=== PATIENT | male | born 1955 | race Caucasian/White ===

== ENCOUNTER 2016-03-26 16:31 | Inpatient (IN) | payer OTHER ==
--- NOTE | 2016-03-26 17:30 | Diag Imaging Result Document ---
PROCEDURE NAME: CHEST-2 VIEWS - 03/26/2016 TWO VIEWS OF THE CHEST: FINDINGS: There are surgical clips in the left upper lobe. There is flattening of the diaphragms. There are old rib fractures bilaterally. There are no previous studies. IMPRESSION: COPD. Old rib fractures.
--- NOTE | 2016-03-26 17:50 | PROVIDER DOCUMENTATION ---
HPI-General Adult - General Source: patient - History of Present Illness -Gen Adult Nature of Presenting Problems: patient is a 60 yo M that presents with right rib pain after having a coughing episode 24 hours ago. reports patient had a fever 2 days ago as well and started on Levaquin. He has Alpha 1 and is o2 dependent with needing lung and liver transplant. Location of Pain/Injury: reports: chest (right rib) Pain Radiation: reports: no radiation Quality of Pain: reports: dull Severity: reports: moderate Onset/Duration: reports: abrupt, 24 hours ago Timing: reports: still present, constant Context/Activities at Onset: reports: other (coughing) Modifying Factors: worse with: coughing Associated Symptoms: reports: chest pain, fever/chills, shortness of breath, pain with inspiration Similar Symptoms Previously?: No Recently seen or treated by another doctor?: Yes <Shukri Dewitt - Last Filed: 03/26/16 18:04> - General Source: patient (Patient is a 60 year old white male with history of severe liver and lung disease who has been awaiting liver and lung transplant who presents with reported fever, right sided rib pain,and rapid heart rate for past ) <Tripp Angeles - Last Filed: 03/26/16 19:01> <Juan Jose Bull - Last Filed: 03/26/16 21:55> - General Chief Complaint: Rib Pain Stated Complaint: RIB PAIN/COUGH Time Seen by Provider: 03/26/16 16:53 Allergies/Adverse Reactions: Patient Allergies Allergy/AdvReac Type Severity Reaction Status Date / Time nalbuphine HCl * Allergy Intermediate ANAPHYLAXIS Verified 03/14/14 23:26 [From Felipe] Home Medications: Albuterol Sulfate [Ventolin Hfa] 2 puff IH Q4-6H PRN PRN 03/14/14 Albuterol [Albuterol Neb] 2.5 mg INH BID PRN 03/14/14 Alendronate [Fosamax] 70 mg PO Q7D 03/14/14 Pxwcu-2-Wfuuvrlhld Inhibitor [Prolastin C] 1,000 mg IV DIRECTED 03/14/14 Alprazolam [Xanax] 0.5 mg PO DAILY 03/14/14 Budesonide [Pulmicort] 0.25 mg INH RTBID 03/14/14 Formoterol Fumarate [Foradil] 1 puff INH RTBID 03/14/14 Guaifenesin E.r. [Mucinex] 600 mg PO BID 03/14/14 Milk Thistle 1,000 mg PO DAILY 03/14/14 Oxycodone I.r. [Oxy Ir] 10 mg PO Q8HR PRN 03/14/14 Phentermine HCl 37.5 mg PO QAM 03/14/14 Prednisone 10 mg PO DAILY 03/14/14 Tamsulosin [Flomax] 0.4 mg PO BID 03/14/14 Tiotropium [place] Inhaler [Spiriva] 1 puff INH RTDAILY 03/14/14 Triamcinolone Acetonide [Nasacort] 1 spray NS BID 03/14/14 Ursodiol 300 mg PO BID 03/14/14 Zolpidem Tartrate [Zolpidem Tartrate ER] 12.5 mg PO DAILY 03/14/14 Review of Systems - Adult - REVIEW OF SYSTEMS - ADULT Constitutional: reports: chills, fever Eyes: reports: no symptoms reported Ears, Nose, Mouth & Throat: denies: ear pain, sinus problem, throat pain Cardiovascular: denies: chest pain, palpitations, syncope Respiratory: reports: pleurisy, shortness of breath. denies: cough, wheezing Gastrointestinal: denies: abdominal pain, diarrhea, nausea, vomiting Genitourinary: reports: no symptoms reported Musculoskeletal: reports: no symptoms reported Integumentary: reports: no symptoms reported Neurological: reports: no symptoms reported Psychiatric: reports: no symptoms reported Endocrine: reports: no symptoms reported Hematologic/Lymphatic: reports: no symptoms reported Allergic/Immunologic: reports: no symptoms reported All Other Systems: Reviewed and Negative <Shukri Dewitt - Last Filed: 03/26/16 18:04> Past History - Adult - PAST MEDICAL HISTORY-ADULT Review of Records: reports: Old Records Reviewed, Nursing Assessment Review, Medications Reviewed Respiratory: reports: asthma, COPD, lung disease Gastrointestinal: reports: hepatitis (Alpha 1 antitrypsin deficiency) - PRIOR SURGERIES/PROCEDURES Surgical/Procedure History: reports: none - IMMUNIZATION STATUS Childhood Immunizations: See Nurse Assessment Flu Vaccine: See Nurse Assessment - FAMILY HISTORY Family History: reviewed, not pertinent - SOCIAL HISTORY Smoking: quit greater than 1 year, cigarettes Living Situation: family <Shukri Dewitt - Last Filed: 03/26/16 18:04> Physical Exam-General - PHYSICAL EXAM-ADULT Initial Vital Signs Reviewed: Yes - CONSTITUTIONAL General Appearance: alert, mild distress - EYES Eyes: PERRL/EOMI, pink conjunctivae - HEAD, EARS, NOSE, MOUTH & THROAT HENMT: normocephalic/atraumatic, moist mucous membranes, normal ENT inspection - NECK Neck: full range of motion, normal inspection - RESPIRATORY Respiratory: lungs clear, normal breath sounds, no respiratory distress, no accessory muscle use, pain on inspiration, other (rib pain to right side) - CARDIOVASCULAR Cardiovascular: no gallop, no murmur, tachycardia - GASTROINTESTINAL (ABDOMEN) Abdominal Exam: normal bowel sounds, non tender, soft - MUSCULOSKELETAL Extremity: normal range of motion, normal inspection, no pedal edema - SKIN Integumentary: normal color, warm/dry - NEUROLOGIC Neurologic: grossly normal, no motor/sensory deficits - PSYCHIATRIC Psych/Mental Status: normal mood/affect, normal thought content, normal thought process, oriented x 3 <Shukri Dewitt - Last Filed: 03/26/16 18:04> Progress - PLAN OF CARE/RESULTS Progress/Plan/Lab Results: plan of care-labs, xray, ct scan thorax - CHANGE OF SHIFT REPORT (ED Provider) Report Given and Care Transferred to:: Time of Transfer: 18:00 Items Pending: Labs, CT/MRI Results <Shukri Dewitt - Last Filed: 03/26/16 18:04> - PLAN OF CARE/RESULTS Progress/Plan/Lab Results: Laboratory Tests 03/26/16 03/26/16 03/26/16 18:00 18:00 18:00 WBC 11.28 H RBC 4.49 L Hgb 13.2 L Hct 40.1 L MCV 89.3 MCH 29.4 MCHC 32.9 L RDW Std Deviation 13.2 Plt Count 213 MPV 10.3 Immature Gran % (Auto) 1.0 H Neut % (Auto) 83.7 H Lymph % (Auto) 3.7 L Stanley % (Auto) 11.5 H Eos % (Auto) 0.0 Baso % (Auto) 0.1 Immature Gran # (Auto) 0.11 H Neut # 9.44 H Lymph # 0.42 L Stanley # 1.30 H Eos # 0.00 Baso # 0.01 Corrected WBC (Man) PT INR APTT (Factor Assay) D-Dimer Sodium 132 L Potassium 4.3 Chloride 90 L Carbon Dioxide 32 Anion Gap 11 BUN 29 H Creatinine 1.7 H Estimated GFR/1.73 m2 41 BUN/Creatinine Ratio 17 Glucose 165 H Calculated Osmolality 274 Calcium 9.3 Magnesium Total Bilirubin 0.50 AST 82 H ALT 68 H Alkaline Phosphatase 60 Creatine Kinase Creatine Kinase Index CK-MB (CK-2) Troponin T Zfr-U-Aasxhvozkuy Pept Total Protein 7.1 Albumin 4.0 Globulin 3.0 Albumin/Globulin Ratio 1.0 Plasma Lactate 2.8 H Urine Source Urine Color Urine Clarity Urine pH Ur Specific [place] Urine Protein Urine Ketones Urine Blood Urine Nitrite Urine Bilirubin Urine Urobilinogen Urine Microscopic RBC Urine WBC Urine Microscopic WBC Ur Epithelial Cells Urine Bacteria Urine Glucose Influenza A (Rapid) Influenza B (Rapid) 03/26/16 03/26/16 03/26/16 18:00 18:00 18:00 WBC RBC Hgb Hct MCV MCH MCHC RDW Std Deviation Plt Count MPV Immature Gran % (Auto) Neut % (Auto) Lymph % (Auto) Stanley % (Auto) Eos % (Auto) Baso % (Auto) Immature Gran # (Auto) Neut # Lymph # Stanley # Eos # Baso # Corrected WBC (Man) PT INR APTT (Factor Assay) D-Dimer Sodium Potassium Chloride Carbon Dioxide Anion Gap BUN Creatinine Estimated GFR/1.73 m2 BUN/Creatinine Ratio Glucose Calculated Osmolality Calcium Magnesium 1.6 Total Bilirubin AST ALT Alkaline Phosphatase Creatine Kinase 1362 H Creatine Kinase Index 0.7 CK-MB (CK-2) 8.92 H Troponin T < 0.010 Vey-M-Zdnqspsxuth Pept 78 Total Protein Albumin Globulin Albumin/Globulin Ratio Plasma Lactate Urine Source Urine Color Urine Clarity Urine pH Ur Specific [place] Urine Protein Urine Ketones Urine Blood Urine Nitrite Urine Bilirubin Urine Urobilinogen Urine Microscopic RBC Urine WBC Urine Microscopic WBC Ur Epithelial Cells Urine Bacteria Urine Glucose Influenza A (Rapid) Influenza B (Rapid) 03/26/16 03/26/16 03/26/16 18:00 18:00 19:35 WBC Cancelled RBC Cancelled Hgb Cancelled Hct Cancelled MCV Cancelled MCH Cancelled MCHC Cancelled RDW Std Deviation Cancelled Plt Count Cancelled MPV Cancelled Immature Gran % (Auto) Cancelled Neut % (Auto) Cancelled Lymph % (Auto) Cancelled Stanley % (Auto) Cancelled Eos % (Auto) Cancelled Baso % (Auto) Cancelled Immature Gran # (Auto) Cancelled Neut # Cancelled Lymph # Cancelled Stanley # Cancelled Eos # Cancelled Baso # Cancelled Corrected WBC (Man) Cancelled PT 13.8 INR 1.03 APTT (Factor Assay) 24.9 D-Dimer 0.55 H Sodium Potassium Chloride Carbon Dioxide Anion Gap BUN Creatinine Estimated GFR/1.73 m2 BUN/Creatinine Ratio Glucose Calculated Osmolality Calcium Magnesium Total Bilirubin AST ALT Alkaline Phosphatase Creatine Kinase Creatine Kinase Index CK-MB (CK-2) Troponin T < 0.010 Afn-C-Ibecotjmcus Pept Total Protein Albumin Globulin Albumin/Globulin Ratio Plasma Lactate Urine Source Urine Color Urine Clarity Urine pH Ur Specific [place] Urine Protein Urine Ketones Urine Blood Urine Nitrite Urine Bilirubin Urine Urobilinogen Urine Microscopic RBC Urine WBC Urine Microscopic WBC Ur Epithelial Cells Urine Bacteria Urine Glucose Influenza A (Rapid) Influenza B (Rapid) 03/26/16 03/26/16 19:45 20:15 WBC RBC Hgb Hct MCV MCH MCHC RDW Std Deviation Plt Count MPV Immature Gran % (Auto) Neut % (Auto) Lymph % (Auto) Stanley % (Auto) Eos % (Auto) Baso % (Auto) Immature Gran # (Auto) Neut # Lymph # Stanley # Eos # Baso # Corrected WBC (Man) PT INR APTT (Factor Assay) D-Dimer Sodium Potassium Chloride Carbon Dioxide Anion Gap BUN Creatinine Estimated GFR/1.73 m2 BUN/Creatinine Ratio Glucose Calculated Osmolality Calcium Magnesium Total Bilirubin AST ALT Alkaline Phosphatase Creatine Kinase Creatine Kinase Index CK-MB (CK-2) Troponin T Nri-T-Gvjkldsparq Pept Total Protein Albumin Globulin Albumin/Globulin Ratio Plasma Lactate Urine Source CLEAN CATCH Urine Color YELLOW Urine Clarity SL. CLOUDY A Urine pH 6.0 Ur Specific [place] 1.015 Urine Protein TRACE A Urine Ketones NEGATIVE Urine Blood 1+ A Urine Nitrite NEGATIVE Urine Bilirubin NEGATIVE Urine Urobilinogen NORMAL Urine Microscopic RBC <10 Urine WBC NEGATIVE Urine Microscopic WBC <10 Ur Epithelial Cells <10 Urine Bacteria 1+ Urine Glucose NEGATIVE Influenza A (Rapid) NEGATIVE Influenza B (Rapid) NEGATIVE Orders Category Date Time Status Cardiac Monitoring DIRECTED Care 03/26/16 18:14 Active IV Insertion ORDERED Care 03/26/16 19:00 Active Notify MD of + Sepsis Screen NOW Care 03/26/16 19:00 Active Oxygen Therapy- ED Nursing DIRECTED Care 03/26/16 18:14 Active Saline Loc NOW Care 03/26/16 17:51 Active ABDOMEN/PELVIS W/O CONTRAST [CT] Stat Exams 03/26/16 18:58 Taken CHEST-2 VIEWS [RAD] Stat Exams 03/26/16 16:[address] THORAX W/O CONTRAST [CT] Stat Exams 03/26/16 18:57 Taken BLOOD CULTURE [BLDCUL] Stat Lab 03/26/16 18:12 Ordered CBC WITH DIFF [HEME] Stat Lab 03/26/16 18:00 Completed CK PROFILE [SP CHEM] Stat Lab 03/26/16 18:00 Completed COMPREHENSIVE METABOLIC PANEL [CHEM] Stat Lab 03/26/16 18:00 Completed D-DIMER PL [COAG] Stat Lab 03/26/16 18:[address] Stat Lab 03/26/16 20:15 Completed LACTATE, PLASMA [CHEM] Stat Lab 03/26/16 18:00 Completed MAGNESIUM [CHEM] Stat Lab 03/26/16 18:00 Completed PRO B-NATRIURETIC PEPTIDE Stat Lab 03/26/16 18:[address]IME WITH INR [address] [COAG] Stat Lab 03/26/16 18:[address] [COAG] Stat Lab 03/26/16 18:00 Completed TROPONIN T Stat Lab 03/26/16 18:00 Completed TROPONIN T Stat Lab 03/26/16 19:[address] W/POSS RFLX CULT [URINALYSIS] Stat Lab 03/26/16 19:45 Completed 0.9% Sodium Chloride Inj [Ns] 1,000 ml Med 03/26/16 19:01 Discontinued .ROUTE As Directed 0.9% Sodium Chloride Inj [Ns] 3,540 ml Med 03/26/16 19:07 Active IV 999 mls/hr CefEPIME 2 GM/NS [Maxipime 2 gm/Ns] 100 ml Med 03/26/16 19:06 Discontinued IV NOW CefTRIAXONE 1 GM/NS [Rocephin 1 gm/Ns] 50 ml Med 03/26/16 18:59 Discontinued IV STAT Ibuprofen [Motrin Liquid] Med 03/26/16 19:08 Discontinued 600 mg .ROUTE .STK-MED ONE Ibuprofen [Motrin Liquid] Med 03/26/16 19:08 Discontinued 600 mg PO NOW ONE Morphine Med 03/26/16 18:28 Discontinued 4 mg IV NOW ONE Ondansetron [Zofran] Med 03/26/16 18:28 Discontinued 4 mg IV NOW ONE Oxygen Device Stat Oth 03/26/16 19:00 Active EKG [EKG] Stat Ther 03/26/16 18:14 Draft Vital Signs - 24 hr 03/26/16 03/26/16 16:41 19:00 Temperature 98 F 102.4 F H Pulse Rate 146 H 122 H Respiratory 20 22 Rate Blood Pressure 130/82 138/088 O2 Sat by Pulse 97 94 L Oximetry - XRAY 1 XRAY: Bilateral XRAY Study: Chest XRAY Interpretation: NEGATIVE - CT/MRI 1 CT Study: Thorax CT Results: RT PLURAL EFFUSION. SMALL STONES OR SLUDGE IN GB. MESENTRIC ADENOPATHY. - CONSULTS/PCP/HOSPITALIST Notification #1 *Consult/PCP/Hospitalist*: DR VALENTINE Time Discussed: 21:50 Reason/Comments: DR ANGELES SPOKE WITH DR VALENTINE. DR VALENTINE WILL ADMIT Consult Disposition: Admit <Juan Jose Bull - Last Filed: 03/26/16 21:55> Departure <Shukri Dewitt - Last Filed: 03/26/16 18:04> <Tripp Angeles - Last Filed: 03/26/16 19:01> - Departure Time of Disposition Order: 21:16 Certified Medical Emergency: Emergent <Juan Jose Bull - Last Filed: 03/26/16 21:55> - Departure DIAGNOSIS: Pleural effusion, Lymphadenopathy, mesenteric Gall stone Qualifiers: Cholecystitis presence: without cholecystitis Biliary obstruction: without biliary obstruction Qualified Code(s): K80.20 - Calculus of gallbladder without cholecystitis without obstruction Acute bronchitis Qualifiers: Bronchitis organism: unspecified organism Qualified Code(s): J20.9 - Acute bronchitis, unspecified Disposition: ADMITTED INPATIENT 09 Condition: Stable Additional Instructions: ED Follow Up Instructions: You have been treated by a care provider in the Emergency Department. These instructions are being provided to you so you can have an understanding of how to care for yourself upon discharge. Upon discharge from the Emergency Department, you are responsible for making arrangements for follow-up care by a physician of your choice. Take all prescribed medications as directed. Return to the Emergency Department immediately for any new or worsening symptoms. You may call the Physician Referral phone number at [phone] to obtain a list of Physicians who are taking new patients. Referrals: None,PCP [Primary Care Provider] - Attestation - Scribe Verification/Attestation Scribe:: Shukri Dewitt Acting as Scribe for:: Emmanuel Rodriguez Scribe documention review:: This chart was documented by a scribe and accurately reflects the service the provider performed and the decisions made by the provider. <Shukri Dewitt - Last Filed: 03/26/16 18:04> Physician Attestation - Physician Attestation I, the provider, attest to the following statement:: Emmanuel Rodriguez Physician documentation Attestation:: This documentation recorded by the scribe accurately reflects the service I personally performed and the decisions made by me. <Shukri Dewitt - Last Filed: 03/26/16 18:04>
[2016-03-26 18:10] LABS: MANUAL DIFF NEEDED? NO
[2016-03-26 18:12] LABS: BASO% 0.1 % (0.0-0.8); HEMATOCRIT 40.1 % (42.0-52.0); HEMOGLOBIN 13.2 g/dL (14.0-18.0); IMM GRAN# 0.11 X1000 (0.0-0.04); LYMPH# 0.42 X1000 (1.2-3.4); LYMPH% 3.7 % (20.5-51.1); MCH 29.4 PG (27-31); MCHC 32.9 g/dL (33-37); MCV 89.3 FL (81-99); MONO% 11.5 % (1.7-9.3); MPV 10.3 FL (7.4-10.4); NEUT% 83.7 % (42.2-75.2); PLT 213 X1000 (130-400); RBC 4.49 XMIL (4.7-6.1)
[2016-03-26] MEDS ORDERED: MORPHINE IV ONE ×2 (18:28→21:42)
[2016-03-26] MEDS ORDERED: ZOFRAN IV ONE ×2 (18:28→21:42)
[2016-03-26 18:33] LABS: MAGNESIUM 1.6 mg/dL (1.5-2.7)
[2016-03-26 18:35] LABS: INR 1.03 (0.86-1.15); PROTIME 13.8 Seconds (12.1-15.5)
[2016-03-26 18:36] LABS: CALCIUM 9.3 mg/dL (8.8-10.2); POTASSIUM 4.3 mmol/L (3.5-5.1); PTT PL 24.9 Seconds (22.6-43.9); TOTAL BILIRUBIN 0.5 mg/dL (0.20-1.00); TOTAL PROTEIN 7.1 g/dL (6.3-8.3)
--- NOTE | 2016-03-26 18:40 | EKG Report ---
Test Performed on : 03/26/2016 6:31:20 PM Test Reason : CP Blood Pressure : / mmHG Vent. Rate : 131 BPM Atrial Rate : 131 BPM P-R Int : 122 ms QRS Dur : 070 ms QT Int : 290 ms P-R-T Axes : 075 052 076 degrees QTc Int : 428 ms Sinus tachycardia. Otherwise normal ECG No previous ECGs available Unconfirmed Result
[2016-03-26] MEDS ORDERED: ROCEPHIN 1 GM/NS 50 ML IV STA (18:59)
[2016-03-26] MEDS ORDERED: NS 2,000 ML ONE (19:01)
[2016-03-26 19:02] LABS: CK INDEX 0.7 (0.0-2.5); CK-MB 8.92 ng/mL (0.0-5.0)
[2016-03-26] MEDS ORDERED: MAXIPIME 2 GM/NS 100 ML IV ONE (19:06)
[2016-03-26] MEDS ORDERED: NS IV ONE (19:07)
[2016-03-26] MEDS ORDERED: MOTRIN LIQUID ONE (19:08)
[2016-03-26] MEDS ORDERED: MOTRIN LIQUID PO ONE (19:08)
[2016-03-26 20:39] LABS: URINE CULTURE PL NEEDED? NO; URINE SOURCE CLEAN CATCH
[2016-03-26 20:46] LABS: BILIRUBIN URINE NEGATIVE (NEGATIVE); BLOOD URINE 1+ (NEGATIVE); CLARITY SL. CLOUDY (CLEAR); COLOR YELLOW; GLUCOSE URINE NEGATIVE (NEGATIVE); LEUKOCYTES URINE NEGATIVE (NEGATIVE); NITRITE URINE NEGATIVE (NEGATIVE); PROTEIN URINE TRACE mg/dL (NEGATIVE); SP GRAVITY URINE 1.015; UROBILINOGEN URINE NORMAL
[2016-03-26 20:51] LABS: URINE EPITHELIAL CELLS <10 /HPF (<10); URINE RBC <10 /HPF (<10); URINE WBC <10 /HPF (<10)
[2016-03-26] MEDS ORDERED: NS 1,000 ML ONE (21:26)
[2016-03-26] MEDS ORDERED: MORPHINE ONE (21:44)
[2016-03-26] MEDS ORDERED: ZOFRAN ONE (21:44)
[2016-03-26] MEDS: DUONEB (A & A) INH SCH (22:29)
[2016-03-26] MEDS ORDERED: TAZIDIME 1 GM in NS 50 ML IV SCH (23:00)
[2016-03-26] MEDS: NS 1,000 ML IV SCH (23:52)
[2016-03-27] MEDS: MORPHINE IV PRN ×3 (00:37→05:06)
[2016-03-27] MEDS ORDERED: TAZIDIME 1 GM in NS 50 ML IV ONE (01:00)
[2016-03-27] MEDS: XANAX PO SCH ×2 (01:02→22:23)
[2016-03-27] MEDS ORDERED: NS 50 ML ONE (01:37)
[2016-03-27] MEDS: AMBIEN PO SCH ×2 (01:38→22:35)
[2016-03-27] MEDS: OXY IR PO PRN ×2 (02:00→10:11)
[2016-03-27] MEDS: TAZIDIME 1 GM in NS 50 ML IV SCH ×3 (02:08→17:23)
[2016-03-27] MEDS: DUONEB (A & A) INH SCH ×6 (03:30→23:20)
[2016-03-27 06:11] LABS: HEMATOCRIT 34.2 % (42.0-52.0); HEMOGLOBIN 11.1 g/dL (14.0-18.0)
[2016-03-27] MEDS: DILAUDID IV PRN ×6 (06:17→22:23)
[2016-03-27] MEDS ORDERED: TAZIDIME 1 GM in NS 50 ML IV SCH (07:00)
[2016-03-27] MEDS ORDERED: SPIRIVA INH SCH (07:30)
[2016-03-27] MEDS: PULMICORT INH SCH ×2 (07:46→19:05)
[2016-03-27] MEDS: ACTIGALL PO SCH ×2 (08:15→17:22)
[2016-03-27] MEDS: NS 1,000 ML IV SCH (08:19)
[2016-03-27] MEDS ORDERED: ZOLPIDEM TARTRATE 12.5 MG PO SCH (09:00)
[2016-03-27] MEDS ORDERED: PREDNISONE PO SCH (09:00)
[2016-03-27] MEDS ORDERED: XANAX PO SCH (09:00)
[2016-03-27] MEDS: FLONASE NAS SCH ×2 (09:10→22:36)
[2016-03-27] MEDS: BROVANA NEB INH SCH ×2 (10:38→21:25)
--- NOTE | 2016-03-27 11:21 | Diag Imaging Result Document ---
PROCEDURE NAME: CT THORAX W/O CONTRAST - 03/26/2016 CT OF THE CHEST: FINDINGS: There is patchy air trapping and COPD. There is some herniation of the lung through a defect in the chest wall laterally on the right in the eighth intercostal space. This may be due to previous thoracotomy. Advise clinical correlation. There is some atelectasis or fibrosis, particularly in the right base, and there is an associated pleural fluid collection on the right. This is fairly dense, measuring up to 60 Hounsfield units. The possibility of blood or pus in this collection is suggested. There is an apparent old fracture in the left lateral sixth rib, parts of which may have been resected. The thoracic spine appears to be intact. There is bilateral gynecomastic. The musculature of the right chest wall appears somewhat hypertrophic, when compared to the left side. There is some subcutaneous stranding, which again may be due to previous trauma. IMPRESSION: 1. Atelectasis and dense effusion on the right. 2. Apparent bilateral old posttraumatic changes in the chest wall. Clinical correlation is suggested.
--- NOTE | 2016-03-27 11:23 | Diag Imaging Result Document ---
PROCEDURE NAME: ABDOMEN/PELVIS W/O CONTRAST - 03/26/2016 CT UROGRAM WITHOUT CONTRAST: FINDINGS: The findings in the chest are again noted. There is no evidence of nephrolithiasis or hydronephrosis. No inflammation is seen around the gallbladder, but there may be sludge of small stones layering dependently. There is stool throughout the colon, particularly the right colon. The appendix is not distended. There is no evidence of small bowel dilatation. There is no evidence of free air or significant free fluid. IMPRESSION: Constipation.
[2016-03-27] MEDS ORDERED: IMODIUM PO PRN (11:36)
[2016-03-27] MEDS ORDERED: DILAUDID IV PRN (12:00)
[2016-03-27 12:37] LABS: BE 3.3 mmoll (-3.0-3.0); BLOOD TYPE ARTERIAL; DRAW SITE R RADIAL; SAMPLE BLOOD; SAO2 98.8 % (95.0-100.0)
[2016-03-27 12:39] LABS: ALLEN TEST YES; MODALITY CANNULA
[2016-03-27 13:02] LABS: PCO2(98.6) 38 mmHg (35-45); pH(98.6) 7.42 (7.35-7.45)
[2016-03-27 13:03] LABS: PO2(98.6) 86 mmHg (60-100); THB 10.5 g/dL (11.5-17.4)
--- NOTE | 2016-03-27 13:27 | HISTORY AND PHYSICAL ---
CHIEF COMPLAINT: Shortness of breath. Right rib pain. 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 He is a lung transplant patient or on the lung transplant list. He presented with severe right rib pain and bruising on his right side after a severe coughing episode where he felt a popping sensation in his right side. He was started on Levaquin about 2 days ago and has not clinically improved. He came in for evaluation. Workup in the ER revealed a right lower lobe pneumonia and effusion and he does some herniated lung actually on the right side. In any case, he has persistent cough, shortness of breath and pain and he has had significant bruising and extension of the bruising in just the last 24 hours. Patient admitted for respiratory failure, pneumonia, COPD. PAST MEDICAL HISTORY: 1. Emphysema alpha 1 antitrypsin deficiency. 2. Chronic pain disorder. 3. 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 He is on chronic prednisone therapy. FAMILY HISTORY: Reviewed noncontributory although his family were both carriers for alpha 1. SOCIAL HISTORY: He smoked in his youth but none currently. No alcohol. ALLERGIES: Nalbuphine. MEDICATIONS: He is on albuterol, Oxy IR, Flomax, Fosamax, milk thistle, prednisone, Prolastin, Pulmicort, Spiriva, Nasacort, Ursodiol, Xanax, Ambien and OxyContin. REVIEW OF SYSTEMS: Otherwise negative times a 10 point review of systems. PHYSICAL EXAMINATION: VITAL SIGNS: Blood pressure 134/81, heart rate 125, respiratory rate 14, temperature 97.8 degrees. 99% over 4 L. GENERAL: A well-developed male, in no acute distress. HEAD: Normocephalic, atraumatic. EYES: Pupils equal, round, reactive to light. Extraocular movements were intact. EAR/NOSE/THROAT: Moist mucous membranes. NECK: Supple. CARDIOVASCULAR: Regular rate and rhythm. No murmurs, gallops, or rubs. PULMONARY: Bilateral breath sounds. Clear to auscultation. GASTROINTESTINAL: Soft, nontender, nondistended. Bowel sounds are positive. EXTREMITIES: No clubbing or cyanosis. LYMPHATICS: No peripheral edema. NEUROLOGICAL: Nonfocal. LABORATORY DATA: White count 11, hemoglobin and hematocrit has dropped from 13 and 40 to 11 and 34, with normal platelet count. Chemistries: BUN and creatinine of 29 and 1.7. AST and ALT of 82 and 68. Plasma lactate 2.8. Troponins were negative. Chest CT showed pleural effusion on the right side with looks like infiltrate versus fibrosis. Significant emphysematous changes. Urine was clear. Flu test was negative. PROBLEM LIST: 1. Acute respiratory failure. We will continue breathing treatments and follow. Continue empiric antibiotics. He is on ceftazidime and Levaquin because of immune deficiency state and alpha 1 broad spectrum. 2. Chronic obstructive pulmonary disease exacerbation. Continue nebulizer treatments. 3. Herniated lung and right pleural effusion. I am going to get pulmonary opinion. It is not large enough I think it needs to be tapped but it is apparently hyperdense and he has this extensive bruising on the side which may be a subcutaneous bleeding from coughing. I do not think there is anything associated with his lung like bronchocutaneous fistula or anything to that effect. His repeat chest x-ray this morning looks okay. He does not have a dense infiltrate or effusion extended. DISPOSITION: Pending his clinical course.
[2016-03-27] MEDS: SOLU-MEDROL IV SCH ×2 (13:31→22:23)
[2016-03-27] MEDS: PROTONIX IV SCH (13:31)
[2016-03-27] MEDS: SODIUM CHLORIDE 0.9% INJ SCH (13:31)
[2016-03-27] MEDS: LEVAQUIN 750 MG/D5W 150 ML IV SCH (13:32)
[2016-03-27] MEDS: MUCINEX PO SCH ×2 (13:32→22:36)
--- NOTE | 2016-03-27 14:55 | Diag Imaging Result Document ---
PROCEDURE NAME: CHEST-PORTABLE - 03/27/2016 AP PORTABLE CHEST, ERECT: TIME: 1135 hours FINDINGS: The inspiration is less optimal than on 03/26/2016. Considering this, there has probably been no significant change. IMPRESSION: Stable chest.
[2016-03-27] MEDS: MUCOMYST 20% INH SCH ×2 (15:30→23:20)
[2016-03-27] MEDS ORDERED: LASIX IV ONE (21:04)
[2016-03-27] MEDS: DUONEB (A & A) INH PRN (21:20)
[2016-03-27] MEDS: LASIX IV SCH (22:23)
[2016-03-27] MEDS: FLOMAX PO SCH (22:35)
[2016-03-27] MEDS: OXYCONTIN PO SCH (22:49)
--- NOTE | 2016-03-28 00:05 | PROGRESS NOTE ---
DATE: 03/27/2016 SUBJECTIVE: The patient seen and examined. The patient was intubated, and was in respiratory distress this morning by Dr. Hays, and has been on 100% FiO2 on assist control. Patient currently sedated with propofol drip. REVIEW OF SYSTEMS: Negative for fevers. Has a thick productive sputum. OBJECTIVE: Blood pressure 142/82, respiratory rate is 134, heart rate - 88, temperature afebrile. Oxygen saturation was 97% on 100% assist control. General: No acute distress. Lethargic. The patient is intubated and sedated, not in significant distress. HEENT: Head and neck normocephalic, atraumatic. Heart: S1-S2 heard. lungs: Bilateral crackles noted. Abdomen: Soft. MEDIA RELATIONS MANAGER: No confusion. LABS: The labs this morning, the pH was 7.41, pCO2 of 54, PO2 of 90. BiPAP of 100%. ABG after intubation, pH of 7.39, pCO2 of 54, bicarbonate 87 on assist control. Tidal volume 450, PEEP of 5 and respiratory rate of 16. CBC and BMP within normal limits, troponin- is 0.331. ASSESSMENT AND PLAN: 1. Acute hypoxic respiratory failure, secondary to ARDS. 2. Multilobar pneumonia. 3. Alcohol withdrawal syndrome. PLAN: 1. I changed the vent settings to PEEP of 10, and decreased FiO2 to 90%. Repeat chest x-ray in the morning. Continue supportive care to maintain his mentation. Continue supportive care. On Xanax that this lymph June 1999. The patient is currently intubated. I decreased the PEEP to 10 and FiO2 to 90%. Repeat ABG recommended in an hour. Continue bronchodilators and broad-spectrum antibiotics, as well as, steroids. 2. Alcohol withdrawal. Continue Ativan and propofol, and PEEP of 5 for hypoxic respiratory failure. Continue oxygen to keep saturation above 88 to 90%. We will order repeat ABG. Further changes in the vent will be based upon ABG results. [facility]
--- NOTE | 2016-03-28 00:29 | CONSULTATION ---
DATE OF CONSULTATION: 03/27/2016 ATTENDING PHYSICIAN: Dr. Hays. REASON FOR CONSULTATION: Possible hemothorax. CHIEF COMPLAINT: Shortness of breath, chest pain on the right side. HISTORY OF PRESENTING ILLNESS: Mr. Rivera is a 60-year-old male with a history of obesity, COPD, hypoxic respiratory failure, alpha 1 antitrypsin deficiency, who was previously evaluated for heart and lung transplant and was declined 1 year ago due to melanoma on his nose. He was apparently in his usual state of health, until yesterday, when he had a severe coughing spell when he started having severe pain, his also noticed a big bruise on the right side of his chest, which started enlarging in a couple of hours, and he was brought to the emergency room for further evaluation. Chest x-ray was done, which showed possible pneumonia. CT scan was performed, which showed right lower lobe pneumonia, and pleural effusion likely hemothorax. Patient mentions that he had a fever prior to the coughing spell, associated with shortness of breath , wheezing. Patient was admitted for closer monitoring and further evaluation. ALLERGIES: Nalbuphine. PAST MEDICAL HISTORY: 1. End-stage COPD. 2. Emphysema, secondary to alpha 1 antitrypsin deficiency, on prolactin. 3. End-stage liver disease, secondary to alpha 1 antitrypsin. 4. Chronic pain. 5. Hypoxic respiratory failure. 6. Obesity. SURGICAL HISTORY: Patient had thoracotomy and left lower lobe resection for malignancy in the past and biopsy. FAMILY HISTORY: He has family members who are carriers of alpha 1 antitrypsin. SOCIAL HISTORY: Patient smoked as a teenager, but quit many years ago. Denies alcohol or drug use. 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 Currently residing with his . Denies alcohol use. MEDICATIONS: He is on albuterol, prednisone, prolactin, Pulmicort, Spiriva, Nasacort, OxyContin. PHYSICAL EXAMINATION: Vital signs: Blood pressure is 134/81, heart rate 125, respiratory rate 14, temperature 97, oxygen saturation 99% on 4 L. General: Patient is in mild respiratory distress. Head and Neck: Normocephalic, atraumatic. Lungs: Slightly decreased air entry on the right side. Patient splinting due to discomfort. No wheezing noted. Cardiac: Regular rate and rhythm. Neurologically: Alert, awake, oriented. LABS: White count is 11,000, hemoglobin 13, hematocrit is 42. CT chest as reviewed by me, shows questionable patchy opacity with small to moderate effusion. Blood gas shows pH 7.42, pCO2 of 38, PO2 of 86, bicarb 27 on 4 L nasal cannula. Chemistry: Sodium 132, potassium 4.2, chloride 90, anion gap is 11, BUN 29, creatinine 1.7. AST is 82, ALT 62. Creatinine- nr, troponin negative to date. MEDICATIONS: The patient is currently on Mucomyst, DuoNeb nebulization treatments, Xanax, Brovana, Budesonide, Ceftazidime, fluticasone, Lasix, Mucinex, Dilaudid, Levaquin, methylprednisone 60 IV q.8 hours, oxycodone, Flomax, Ambien. ASSESSMENT AND PLAN: 1. Right-sided pleural effusion, likely hemothorax. 2. Hypoxic respiratory failure. 3. COPD with exacerbation. 4. Alpha 1 antitrypsin deficiency. PLAN: 1. I reviewed the CT chest images myself, suspicion for hemothorax is very high , although I do not see any obvious rib fractures. I believe patient had a muscle pull or tear, which might have led to the hemothorax. Given the small size of the hemothorax, it is unclear if patient should be managed conservatively or will need a pigtail catheter to drain the pneumothorax. The patient is certainly a high risk candidate for any surgical procedure due to end-stage lung disease. I will discuss with Dr. Hays as well as, surgery, to assess risks versus benefits. Patient has been hemodynamically stable. I recommend pain medications to avoid splinting, and incentive spirometry to prevent atelectasis in the lung. My suspicion for pneumonia is low, although, patient has opacity on the CAT scan. It could be secondary to the trauma from the vigorous coughing. We will continue broad-spectrum antibiotics for 48 hours, and deescalate rapidly, depending on the clinical response and culture results. 2. Hypoxic respiratory failure. Patient is on 3 to 4 L of oxygen at home. Continue home oxygen to keep saturation above 88 to 90%. 3. COPD with exacerbation. Continue steroids, cough suppressants with DuoNeb nebulization treatments. 4. Alpha 1 antitrypsin. Continue prolactin infusions every Tuesday. Continue cough suppressants and mucolytics to prevent further worsening of cough. [facility]
[2016-03-28] MEDS: TAZIDIME 1 GM in NS 50 ML IV SCH ×3 (00:47→16:22)
[2016-03-28] MEDS: DILAUDID IV PRN ×7 (01:30→23:43)
[2016-03-28] MEDS: DUONEB (A & A) INH SCH ×6 (02:50→23:50)
[2016-03-28] MEDS: SOLU-MEDROL IV SCH ×3 (05:10→20:28)
[2016-03-28 06:36] LABS: HEMATOCRIT 35.8 % (42.0-52.0); HEMOGLOBIN 11.5 g/dL (14.0-18.0); MCH 28.6 PG (27-31); MCHC 32.1 g/dL (33-37); MCV 89.1 FL (81-99); MPV 10.1 FL (7.4-10.4); RBC 4.02 XMIL (4.7-6.1)
[2016-03-28 06:49] LABS: CALCIUM 8.7 mg/dL (8.8-10.2); POTASSIUM 4.2 mmol/L (3.5-5.1)
[2016-03-28] MEDS: BROVANA NEB INH SCH ×2 (08:01→23:50)
[2016-03-28] MEDS: PULMICORT INH SCH ×2 (08:02→19:00)
[2016-03-28] MEDS: ACTIGALL PO SCH ×2 (08:28→16:28)
[2016-03-28] MEDS: FLOMAX PO SCH ×2 (08:28→20:43)
[2016-03-28] MEDS: MUCINEX PO SCH ×2 (08:28→20:44)
[2016-03-28] MEDS: FLONASE NAS SCH ×2 (08:32→20:44)
[2016-03-28] MEDS: OXYCONTIN PO SCH ×2 (08:36→20:29)
[2016-03-28] MEDS: OXY IR PO PRN (11:24)
[2016-03-28] MEDS: LASIX IV SCH ×2 (11:25→20:29)
[2016-03-28] MEDS: MUCOMYST 20% INH SCH (11:29)
[2016-03-28] MEDS: SODIUM CHLORIDE 0.9% INJ SCH (11:31)
[2016-03-28] MEDS: PROTONIX IV SCH (11:31)
[2016-03-28] MEDS ORDERED: VITAMIN K PO ONE (13:10)
[2016-03-28] MEDS ORDERED: LASIX IV SCH (13:30)
--- NOTE | 2016-03-28 15:37 | PROGRESS NOTE ---
DATE: 03/28/2016 SUBJECTIVE: The patient is OBJECTIVE DATA: Vital signs: Vitals are stable. Heart rate is 124, blood pressure saturations are 93% 4 L, respiratory of 14. Cardiovascular: Regular rate and rhythm. Pulmonary: Bilateral breath sounds. Clear to auscultation. GI: Soft, nontender, nondistended. Bowel sounds are positive. Extremities: No clubbing or cyanosis. Lymphatic: No peripheral edema. Neurological: Nonfocal. LABORATORY DATA: Creatinine is down to 1.3, sodium 133, hemoglobin and hematocrit 11, 35, white count 9000. PROBLEM LIST: 1. Pneumonia. He appears to be improving currently or at least stabilizing, no fever and white count has come down. We will continue antibiotics. Pulmonary is following. He is on Ceptaz and Levaquin. 2. Right lower lobe pleural effusion possibly traumatic. We will continue to monitor. There is not enough fluid to do anything with at this time. 3. Extensive ecchymoses associated with presumably a coughing episode where he had subcutaneous hemorrhage, is still fairly extensive. Surgery has seen and we are monitoring for the time being. He has no coagulopathy. He is not on anti-platelet therapy. There is a side effect associated with Prolastin of hemorrhage but he is not currently getting that. We will continue to follow. 4. Cirrhosis appears to be stable. Family was very concerned about volume overload issues so we did institute diuretic and we will continue that for the time being. Repeat his chest x-ray and we are waiting his echocardiogram report. Will touch base with his transplant doctor either today or tomorrow. Monitor in the ICU for now.
[2016-03-28] MEDS: MORPHINE IV PRN ×2 (16:23→21:47)
--- NOTE | 2016-03-28 17:44 | Diag Imaging Result Document ---
PROCEDURE NAME: ABDOMEN W/O CONTRAST - 03/28/2016 CT UROGRAM WITHOUT CONTRAST: FINDINGS: Compared to 03/26/2016, the pleural fluid collection has not changed significantly. There is increased alveolar opacity present in the right lower lobe. Soft tissue swelling along the lower right chest wall and abdominal wall is again noted. There is no evidence of bowel obstruction, free fluid in the abdomen or free intraabdominal gas. The kidneys are without evidence of stones or hydronephrosis. IMPRESSION: Right lower lobe pneumonia. Otherwise, stable since 03/26/2016.
--- NOTE | 2016-03-28 19:35 | Diag Imaging Result Document ---
PROCEDURE NAME: CHEST-1 VIEW - 03/28/2016 FINDINGS: The appearance of the chest has not changed significantly since 03/27/2016. IMPRESSION: Stable chest.
[2016-03-28] MEDS: XANAX PO SCH (20:29)
[2016-03-28] MEDS: DUONEB (A & A) INH PRN (21:00)
[2016-03-28] MEDS: AMBIEN PO SCH (22:40)
[2016-03-29] MEDS: TAZIDIME 1 GM in NS 50 ML IV SCH ×3 (01:08→17:36)
[2016-03-29] MEDS: MORPHINE IV PRN ×5 (01:08→21:12)
--- NOTE | 2016-03-29 03:31 | PROGRESS NOTE ---
DATE: 03/28/2016 SUBJECTIVE: Patient seen and examined this afternoon. He continues to have shortness of breath as well as cough. Abdominal pain still present. The patient and his are worried about the worsening bruise on his abdomen. No fevers overnight. OBJECTIVE: Vital Signs: Blood pressure is in 130s, heart rate 120, oxygen saturation 93% on 3-4 L. Respiratory rate is 14. General: Obese, in mild respiratory distress. Cardiac: Regular rate and rhythm. Lungs: Decreased air entry bilaterally. Minimal crackles. No wheezing heard. Gastrointestinal: Soft. Bowel sounds present. Skin: Extensive abdominal bruise, contusion extending from the inferior border of the scapula close to the midline on the right side all the way on the lateral surface of the abdomen coming towards the front of the abdomen, extending below until his buttocks. No active skin tear of bleeding noted. Labs: Hemoglobin is 11, hematocrit 35, white count is 9000. Creatinine is 1.3, sodium 133. ASSESSMENT AND PLAN: 1. Pulmonary infiltrate on the right side secondary to pneumonia. 2. Right lower lobe pleural effusion. 3. Abdominal wall ecchymosis on the right side secondary to subcutaneous hemorrhage from cough. 4. History of cirrhosis secondary to alpha 1 antitrypsin deficiency. 5. Hypoxic respiratory failure which is chronic secondary to emphysema from alpha 1 antitrypsin deficiency. PLAN: 1. The patient has a small infiltrate. Continue antibiotics along with cough suppressants. Patient has been refusing Robitussin with codeine and is trying to cough, and mentions that he is trying to cough up the phlegm. Advised patient to use cough suppressant to prevent coughing. Continue antibiotics. 2. Right lower lobe effusion, likely hemorrhage, too small to have a chest tube placed. We will continue monitoring the patient clinically. Recommend pain control to prevent chest wall splinting which might worsen pneumonia and atelectasis. 3. Right abdominal wall hematoma and ecchymosis. Ecchymosis has spread extensively since admission. Discuss with Dr. Hays who ordered repeat CT to look for any intra-abdominal hematoma. Patient cannot get any contrast due to borderline creatinine. 4. Emphysema and cirrhosis secondary to alpha 1 antitrypsin. The patient is currently on Prolastin. Continue his home regimen. Continue to monitor the patient overnight in the ICU for hemodynamics stability. We will plan for transfer patient out of ICU in a.m.
[2016-03-29] MEDS: SOLU-MEDROL IV SCH ×2 (04:32→17:28)
[2016-03-29] MEDS: DUONEB (A & A) INH SCH ×6 (05:08→23:15)
[2016-03-29] MEDS: MUCOMYST 20% INH SCH ×3 (05:09→19:47)
[2016-03-29] MEDS: MOVANTIK PO SCH (06:07)
[2016-03-29] MEDS: DILAUDID IV PRN ×5 (06:07→21:50)
[2016-03-29 06:39] LABS: HEMOGLOBIN 9.8 g/dL (14.0-18.0); MCH 28.8 PG (27-31); MCHC 32.7 g/dL (33-37); MCV 88.2 FL (81-99); MPV 10.4 FL (7.4-10.4); RBC 3.4 XMIL (4.7-6.1)
[2016-03-29 07:09] LABS: AGAP 4; BUN 28 mg/dL (8-22); CHLORIDE 95 mmol/L (98-107); COSMO 278; POTASSIUM 3.9 mmol/L (3.5-5.1); SODIUM 134 mmol/L (136-145); TCO2 34 mmol/L (25-35)
[2016-03-29] MEDS: PULMICORT INH SCH (07:27)
--- NOTE | 2016-03-29 08:02 | Diag Imaging Result Document ---
PROCEDURE NAME: CHEST-2 VIEWS - 03/29/2016 TWO VIEWS OF THE CHEST: FINDINGS: There is mild atelectasis present in the lung bases, particularly posteriorly. There has been very little appreciable change since the single view chest radiograph performed on 03/28/2016. IMPRESSION: Bibasilar atelectasis.
[2016-03-29] MEDS: MUCINEX PO SCH ×3 (08:14→21:21)
[2016-03-29] MEDS: OXYCONTIN PO SCH ×3 (08:15→21:20)
[2016-03-29] MEDS: ACTIGALL PO SCH ×2 (08:15→17:28)
[2016-03-29] MEDS: FLOMAX PO SCH ×3 (08:15→21:21)
[2016-03-29] MEDS: LASIX IV SCH (08:15)
[2016-03-29] MEDS: FLONASE NAS SCH ×2 (09:23→21:20)
[2016-03-29] MEDS: BROVANA NEB INH SCH (10:49)
[2016-03-29] MEDS: LEVAQUIN 750 MG/D5W 150 ML IV SCH (11:32)
[2016-03-29] MEDS: PROTONIX IV SCH (11:34)
--- NOTE | 2016-03-29 11:45 | ECHO REPORT ---
ORDER DATE: 03/28/2016 STUDY: This is a 2D M-mode color Doppler exam. This is a technically difficult study. INTERPRETATION: 1. The left ventricle is not fully visualized, but appears normal in size, without hypertrophy, and with preserved overall systolic function. Estimated left ventricular ejection fraction is around 50%. 2. The left and right atria do not appear to be enlarged. The right ventricle appears to have preserved size and most likely preserved function. 3. There is no pericardial effusion. 4. The aortic valve is trileaflet. There is no evidence for aortic stenosis or aortic insufficiency. 5. The mitral valve is intact. The tricuspid valve is intact. 6. There is trivial to mild mitral regurgitation. There is not appear to be significant tricuspid regurgitation. 7. The peak pulmonary artery pressure could not be accurately assessed in this study. 8. No obvious intracardiac masses or thrombi are noted. 9. Mitral Doppler E to A ratio is 0.8, which is nonspecific.
[2016-03-29] MEDS: ROBITUSSIN-AC PO PRN (13:35)
[2016-03-29] MEDS: OXY IR PO PRN (14:50)
[2016-03-29] MEDS: XANAX PO SCH ×2 (19:53→21:20)
[2016-03-29] MEDS: AMBIEN PO SCH ×2 (19:53→21:20)
[2016-03-30] MEDS: TAZIDIME 1 GM in NS 50 ML IV SCH ×3 (00:08→18:32)
--- NOTE | 2016-03-30 00:25 | PROGRESS NOTE ---
DATE: 03/29/2016 SUBJECTIVE: Patient seen and examined this afternoon. Cough and wheezing have gotten slightly worse. Patient mentions that his wheezing will worsen due to inability to cough for from the contusion and hemorrhage. No fevers overnight. Pain in his right chest wall and abdomen slightly improved. OBJECTIVE: Vitals: Blood pressure is 138/97, respiratory rate 26, pulse 112, oxygen saturation 92% on 4 L. General: Obese individual in moderate respiratory distress. Heart: S1-S2 heard. Lungs: Diffuse wheezing and decreased air entry noted. Abdomen: Soft. Extremities: No edema. Skin: Diffuse ecchymotic rash noted entire right-side of his lower chest and abdomen nonprogressive compared to yesterday. LABS: White count is 12,000, hemoglobin 9.8, hematocrit 30. Blood gas, no new gases. Chemistry. Sodium 134, potassium 3.9, CO2 34, BUN 28, creatinine 1. Cultures have been negative so far. Chest x-ray shows atelectasis. ASSESSMENT AND PLAN: 1. Right abdominal wall ecchymosis secondary to severe cough and subcutaneous hemorrhage. 2. Emphysema secondary to alpha 1 antitrypsin deficiency. 3. Hypoxic respiratory failure. 4. Cough. PLAN: The patient clinically has been stable. He is on oxygen at his baseline. Repeat CT abdomen did not show any intraabdominal bleeding or rib fractures just he had subcutaneous bleeding and wall thickening. Continue cough suppression with codeine, continue nebulization treatments. Okay to transfer patient out of ICU. Discharge planning in 1-2 days.
[2016-03-30] MEDS: MORPHINE IV PRN ×4 (00:49→15:44)
[2016-03-30] MEDS: DILAUDID IV PRN ×6 (01:16→21:01)
[2016-03-30] MEDS: BROVANA NEB INH SCH ×2 (03:45→10:40)
[2016-03-30] MEDS: DUONEB (A & A) INH SCH ×6 (03:46→22:48)
[2016-03-30] MEDS: PULMICORT INH SCH ×3 (03:46→22:48)
[2016-03-30] MEDS: OXY IR PO PRN ×2 (03:55→19:49)
[2016-03-30] MEDS: SOLU-MEDROL IV SCH (04:25)
[2016-03-30] MEDS: MOVANTIK PO SCH (06:10)
[2016-03-30 06:41] LABS: HEMOGLOBIN 10.3 g/dL (14.0-18.0); MCH 28.9 PG (27-31); MCHC 32.2 g/dL (33-37); MCV 89.9 FL (81-99); MPV 9.7 FL (7.4-10.4); RBC 3.56 XMIL (4.7-6.1)
[2016-03-30 06:52] LABS: AGAP 5; BUN 30 mg/dL (8-22); CHLORIDE 95 mmol/L (98-107); COSMO 285; MAGNESIUM 2.5 mg/dL (1.5-2.7); POTASSIUM 4.2 mmol/L (3.5-5.1); SODIUM 137 mmol/L (136-145); TCO2 37 mmol/L (25-35)
[2016-03-30] MEDS: MUCOMYST 20% INH SCH ×2 (08:00→19:58)
[2016-03-30] MEDS: ACTIGALL PO SCH ×2 (09:19→17:53)
[2016-03-30] MEDS: ZITHROMAX PO SCH (09:20)
[2016-03-30] MEDS: FLOMAX PO SCH ×3 (09:20→21:37)
[2016-03-30] MEDS: OXYCONTIN PO SCH ×3 (09:20→21:36)
[2016-03-30] MEDS: MUCINEX PO SCH ×4 (09:20→21:37)
[2016-03-30] MEDS: FLONASE NAS SCH ×3 (09:21→21:37)
[2016-03-30] MEDS: PROTONIX IV SCH (12:05)
[2016-03-30] MEDS: SODIUM CHLORIDE 0.9% INJ SCH (12:05)
[2016-03-30] MEDS: ROBITUSSIN-AC PO PRN (14:59)
[2016-03-30] MEDS: XANAX PO SCH ×2 (19:48→21:36)
[2016-03-30] MEDS: AMBIEN PO SCH ×2 (19:49→21:36)
[2016-03-30 21:16] LABS: INR 0.97 (0.86-1.15); PROTIME 13.2 Seconds (12.1-15.5)
[2016-03-31] MEDS: DILAUDID IV PRN ×8 (00:07→23:55)
[2016-03-31] MEDS: TAZIDIME 1 GM in NS 50 ML IV SCH ×4 (00:07→23:55)
--- NOTE | 2016-03-31 00:19 | PROGRESS NOTE ---
DATE: 03/30/2016 SUBJECTIVE: The patient seen and examined. Continues to have significant discomfort on the left abdomen and chest. His cough has been stable. No fevers overnight. PHYSICAL EXAMINATION: General: Mild respiratory distress. Heart: S1-S2 heard. Lungs: Decreased air entry bilaterally. No wheezing. No crackles. Abdomen: Soft, bowel sounds present. Extremities: No edema. SOFA BACK UPHOLSTERER: No confusion. Skin: No significant worsening of the bruise, compared to yesterday on the right side. LABS: Previous labs reviewed. ASSESSMENT AND PLAN: 1. Lateral abdominal chest wall ecchymosis secondary to vigorous cough. 2. Alpha 1 antitrypsin deficiency. 3. COPD with exacerbation, leading to cough. 4. Postnasal drip and sinusitis. PLAN: Patient continues to complain of significant amount of pain. Just titrate pain medications. Recommend incentive spirometry. Out of bed to chair and ambulation. Continue treating with antibiotics, as well as, steroids. We will continue to follow. Disposition in 1 to [address] Hays about discharge once his pain in under control.
[2016-03-31] MEDS: OXY IR PO PRN ×2 (02:47→17:20)
[2016-03-31] MEDS: DUONEB (A & A) INH SCH ×5 (03:50→19:50)
[2016-03-31] MEDS: BROVANA NEB INH SCH ×3 (03:50→21:51)
[2016-03-31] MEDS: MOVANTIK PO SCH (06:12)
[2016-03-31 07:20] LABS: HEMATOCRIT 32.7 % (42.0-52.0); HEMOGLOBIN 10.7 g/dL (14.0-18.0); MCH 29.6 PG (27-31); MCHC 32.7 g/dL (33-37); MCV 90.6 FL (81-99); MPV 9.2 FL (7.4-10.4); RBC 3.61 XMIL (4.7-6.1)
[2016-03-31] MEDS: MUCOMYST 20% INH SCH ×2 (07:47→19:50)
[2016-03-31 07:59] LABS: AGAP 6; BUN 27 mg/dL (8-22); CALCIUM 8.4 mg/dL (8.8-10.2); CHLORIDE 96 mmol/L (98-107); COSMO 284; POTASSIUM 3.4 mmol/L (3.5-5.1); SODIUM 139 mmol/L (136-145); TCO2 37 mmol/L (25-35)
[2016-03-31] MEDS: ZITHROMAX PO SCH (09:34)
[2016-03-31] MEDS: ACTIGALL PO SCH ×2 (09:34→16:51)
[2016-03-31] MEDS: MUCINEX PO SCH ×2 (09:34→20:52)
[2016-03-31] MEDS: FLOMAX PO SCH ×2 (09:35→20:52)
[2016-03-31] MEDS: OXYCONTIN PO SCH ×2 (09:35→20:52)
[2016-03-31] MEDS: SOLU-MEDROL IV SCH (09:36)
[2016-03-31] MEDS: FLONASE NAS SCH ×2 (09:47→22:23)
--- NOTE | 2016-03-31 10:27 | PROGRESS NOTE ---
DATE: 03/29/2016 SUBJECTIVE: The patient is still complaining of pain in the abdomen, shortness of breath, and cough. OBJECTIVE: Vital signs: Blood pressure 117/86, heart rate of 102, respiratory rate of 24, oxygen saturation 94, 92, 94 on 3 L. Cardiovascular: Regular rate and rhythm. Pulmonary: Bilateral breath sounds, clear to auscultation. GI: Soft, nontender, nondistended, bowel sounds are positive. Extremities: No clubbing or cyanosis. Lymphatic: No peripheral edema. LABORATORY DATA: White count 12, hemoglobin and hematocrit 9.8 and 30, platelets of 208. PROBLEM LIST: 1. Presumed right lower lobe pneumonia. Will continue empiric antibiotics, breathing treatments, Pulmonary is following. 2. Extensive abdominal ecchymoses. We will continue to monitor. It is extending, and his hematocrit has dropped. We have repeated CT, and it has been unremarkable, and we may need to transfuse. 3. Hypoxic respiratory failure. Will continue to wean as tolerated. DISPOSITION: Pending resolution of his other symptoms.
[2016-03-31] MEDS: PULMICORT INH SCH (10:47)
--- NOTE | 2016-03-31 10:58 | PROGRESS NOTE ---
DATE: 03/30/2016 SUBJECTIVE: The patient is breathing a little bit more comfortably. Pain appears to be somewhat under control. OBJECTIVE: Vital signs: Blood pressure 153/87, heart rate of 127, respiratory rate 18, temp 98, 95% on 4 L. Cardiovascular: Tachy. Pulmonary: Diminished at the bases but otherwise no wheezing. GI: Soft, nontender, nondistended, bowel sounds are positive. Abdomen: He still has ecchymoses extending from his right abdomen across the midline and along his back, as well. LABORATORY DATA: White count is 12, hemoglobin and hematocrit 10 and 32, platelets of 235. BUN and creatinine are 27 and 1. PROBLEM LIST: 1. Acute respiratory failure secondary to pneumonia. Will continue antibiotics. Pulmonary is following. Continue breathing treatments. He is on Mucomyst. He apparently is not doing well with his steroids. He feels like it is causing agitation, so we will decrease the dose of those, decrease his dose of Mucinex. 2. Extensive abdominal wall hemorrhage. Hemoglobin and hematocrit have improved, actually, which is reassuring, but the family, especially the , are extremely concerned about his state and would like him transferred or at least communicating with his primary gum maker. We attempted to contact the primary gum maker but were unable to earlier in the day. We did contact his woodworker helper, Dr. Odom. She recommended transfer to a higher center where Interventional Radiology was. We did discuss the case with Dr. Sauer at [facility]. He did accept the patient, but their beds are on diversion. Later on in the day, we did get in contact with and he is working on possible transfer to [place] based on review of his studies. Again, discussion with Dr. Sauer did not feel that interventional would be anything for them to do at risk of damaging his kidneys. 3. Acute kidney injury that appears to be resolving. 4. Cirrhosis, appears to be well compensated, and will repeat his coagulation profile. DISPOSITION: Possible transfer in the next 24-48 hours pending his course.
[2016-03-31] MEDS: LEVAQUIN 750 MG/D5W 150 ML IV SCH (13:12)
[2016-03-31] MEDS: SODIUM CHLORIDE 0.9% INJ SCH (13:12)
[2016-03-31] MEDS: PROTONIX IV SCH (13:12)
[2016-03-31] MEDS: DUONEB (A & A) INH PRN (13:35)
[2016-03-31] MEDS: ROBITUSSIN-AC PO PRN (18:10)
--- NOTE | 2016-03-31 20:18 | PROGRESS NOTE ---
DATE: 03/31/2016 SUBJECTIVE: Patient seen and examined this afternoon. Continues to complain of pain with rash. No acute events overnight. Able to ambulate. OBJECTIVE: Vitals: Blood pressure 138/71, respiratory rate is 18, pulse 67, temperature 97 degrees, oxygen saturation 97% on 2 L. General: Obese, in moderate respiratory distress. Heart: S1-S2 heard. Lungs: Decreased air entry bilaterally. Scattered wheezes. Abdomen: Soft. Extremities: No edema. Skin: Mild improvement in the discoloration of the ecchymotic lesion on the right side of his abdomen and chest. LABORATORY/IMAGING: White count is 12,000 hemoglobin 10.7, hematocrit 32.7, sodium 139, potassium 3.4, chloride 96, BUN 27, creatinine 1. MEDICATIONS: Mucomyst, DuoNeb, Xanax, Brovana, Zithromax, Pulmicort, ceftazidime, Flonase, Mucinex, Dilaudid, Levaquin, oxycodone, Isordil, and zolpidem. ASSESSMENT AND PLAN: 1. Right lower lobe pneumonia. 2. Emphysema secondary to alpha 1 antitrypsin deficiency. 3. Hypoxic respiratory failure. 4. Right-sided chest wall ecchymosis and hematoma secondary to cough. PLAN: Patient continues to have significant amount of pain needing Dilaudid every 3 hours. Recommend continue pain medications for better pain control. Continue nebulization treatments as well as antibiotics for treatment of pneumonia. Also recommend continuing cough suppression with Robitussin and codeine. Disposition in 1-2 days if he continues to be stable respiratory-luke as hemodynamically. [facility]
[2016-03-31] MEDS ORDERED: PATIENT'S OWN MED INJ SCH (20:30)
[2016-03-31] MEDS: AMBIEN PO SCH (20:52)
--- NOTE | 2016-03-31 21:32 | PROGRESS NOTE ---
DATE: 03/31/2016 SUBJECTIVE: Patient states he is feeling a little bit better. Still having cough, congestion, still having shortness of breath, still having a lot of bruising on his right lower front and back side. Denies any current chest pain. Denies any worsening of the bruising. Denies any fevers or chest pain. PHYSICAL EXAMINATION: Vital signs: Temperature 97 degrees, pulse 67, respiratory rate 18. Blood pressure 138/71. General: The patient is well-developed, obese male who is in [id number] respiratory distress. He is awake, alert, oriented. Speech is regular. Memory is intact. Neck: Supple. CARDIOVASCULAR: Regular rate. Chest: Decreased breath sounds bilaterally with diffuse wheezing. Abdomen: Soft. Extremities: Moves all extremities. Skin: He has diffuse ecchymotic rashes noted entire right-side that appears to not be progressing. LABORATORY: Reviewed. WBC is 12. Hemoglobin and hematocrit 10 and 30. CMP essentially unchanged. ASSESSMENT: 1. Right abdominal wall ecchymoses secondary to severe cough and subcutaneous hemorrhage. 2. Emphysema secondary to alpha 1 antitrypsin deficiency. 3. Hypoxic respiratory failure, stable. 4. Fall. Stable. PLAN: 1. We continue to await [facility] to have a bed. He has had no real change. It is time for him to take his Prolastin today. We will continue that. We will continued to talk to [facility] about transfer when bed is available. 2. We will discuss with the patient. He is wanting his pain medicines scheduled. Discussed with him that this is not a great option, that means the staff would have to wake him up if he were asleep to give him pain medicine, but certainly needs to stay with the oxycodone every 12 hours and p.r.n. other medications. Discussed with him pain medications effect on breathing.
[2016-03-31] MEDS: XANAX PO SCH (22:24)
[2016-04-01] MEDS: DUONEB (A & A) INH SCH ×7 (00:13→22:34)
[2016-04-01] MEDS: PULMICORT INH SCH ×3 (00:13→19:05)
[2016-04-01] MEDS: DILAUDID IV PRN ×7 (03:05→23:02)
[2016-04-01] MEDS: TAZIDIME 1 GM in NS 50 ML IV SCH ×3 (03:18→17:22)
[2016-04-01] MEDS: MOVANTIK PO SCH (06:17)
[2016-04-01] MEDS: OXY IR PO PRN (06:17)
[2016-04-01] MEDS: MUCOMYST 20% INH SCH ×2 (07:22→19:05)
[2016-04-01] MEDS: BROVANA NEB INH SCH ×2 (07:22→19:04)
--- NOTE | 2016-04-01 09:03 | PROGRESS NOTE ---
DATE: 04/01/2016 SUBJECTIVE: The patient continues to have increased pain despite Dilaudid and OxyContin. Otherwise denies any true chest pain or increased work of breathing. Bruising on his side has not changed. OBJECTIVE: Vital signs: Temperature 97, pulse 104, respiratory rate 22, BP 135/80. General: The patient is a well-developed male who is obese. He is in no respiratory distress currently. HEENT: Normocephalic. Neck: Supple. CV: Regular rate Chest: Decreased breath sounds with scattered wheezing but otherwise unchanged. Skin: He has no real changes of the discoloration of the ecchymotic lesions on the right side. LABS: Reviewed. ASSESSMENT: 1. Right lower lobe pneumonia. 2. Emphysema secondary to alpha 1 antitrypsin. 3. Hypoxic respiratory failure. 4. Right-sided chest wall ecchymosis. PLAN: We will increase patient's OxyContin to 20 twice a day. Continue p.r.n. pain medication. He is still waiting on his lung transplant specialist from [facility] to call with a bed. We will continue symptomatic care.
[2016-04-01] MEDS: ZOFRAN IV PRN ×2 (09:58→17:18)
[2016-04-01] MEDS: FLOMAX PO SCH ×2 (10:06→21:51)
[2016-04-01] MEDS: ACTIGALL PO SCH ×2 (10:06→17:23)
[2016-04-01] MEDS: MUCINEX PO SCH ×2 (10:07→21:52)
[2016-04-01] MEDS: SOLU-MEDROL IV SCH (10:07)
[2016-04-01] MEDS: ZITHROMAX PO SCH (10:10)
[2016-04-01] MEDS: FLONASE NAS SCH ×2 (10:12→21:53)
[2016-04-01] MEDS: ROBITUSSIN-AC PO PRN (10:29)
[2016-04-01] MEDS: OXYCONTIN PO SCH ×2 (12:14→21:51)
[2016-04-01] MEDS: PROTONIX IV SCH (14:16)
[2016-04-01] MEDS: AMBIEN PO SCH (21:51)
[2016-04-01] MEDS: XANAX PO SCH (21:51)
[2016-04-02] MEDS: TAZIDIME 1 GM in NS 50 ML IV SCH ×2 (01:53→08:04)
[2016-04-02] MEDS: DILAUDID IV PRN ×4 (01:56→14:23)
[2016-04-02] MEDS: DUONEB (A & A) INH SCH ×4 (03:44→16:31)
[2016-04-02 06:12] LABS: HEMATOCRIT 33.9 % (42.0-52.0); HEMOGLOBIN 10.6 g/dL (14.0-18.0); MCH 28.8 PG (27-31); MCHC 31.3 g/dL (33-37); MCV 92.1 FL (81-99); MPV 9.4 FL (7.4-10.4); RBC 3.68 XMIL (4.7-6.1)
[2016-04-02] MEDS: MOVANTIK PO SCH (06:21)
[2016-04-02 06:55] LABS: AGAP 2; ALBUMIN 3.2 g/dL (3.5-5.0); ALKALINE PHOSPHATASE 47 U/L (32-122); BUN 25 mg/dL (8-22); CALCIUM 9.1 mg/dL (8.8-10.2); CHLORIDE 94 mmol/L (98-107); COSMO 280; GOT 55 U/L (10-34); GPT 69 U/L (10-44); MAGNESIUM 2.2 mg/dL (1.5-2.7); POTASSIUM 4.2 mmol/L (3.5-5.1); SODIUM 137 mmol/L (136-145); TCO2 41 mmol/L (25-35); TOTAL PROTEIN 5.8 g/dL (6.3-8.3)
[2016-04-02] MEDS ORDERED: PRILOSEC PO SCH (07:00)
[2016-04-02 07:40] LABS: CK INDEX 0.9 (0.0-2.5); CK-MB 4.83 ng/mL (0.0-5.0)
[2016-04-02] MEDS: ACTIGALL PO SCH (08:04)
[2016-04-02] MEDS: MUCINEX PO SCH (08:06)
[2016-04-02] MEDS: ZITHROMAX PO SCH (08:07)
[2016-04-02] MEDS: SOLU-MEDROL IV SCH (08:07)
[2016-04-02] MEDS: OXYCONTIN PO SCH (08:07)
[2016-04-02] MEDS: FLOMAX PO SCH (08:07)
[2016-04-02] MEDS: BROVANA NEB INH SCH (08:29)
[2016-04-02] MEDS: PULMICORT INH SCH (08:30)
[2016-04-02] MEDS ORDERED: LEVAQUIN PO SCH (09:00)
[2016-04-02] MEDS ORDERED: OXYCONTIN PO ONE (09:59)
[2016-04-02] MEDS: FLONASE NAS SCH (10:00)
--- NOTE | 2016-04-02 11:29 | PROGRESS NOTE ---
DATE: 04/02/2016 SUBJECTIVE: Patient actually feeling a little bit better this morning. He is sitting up attempting to eat breakfast. He is having no true chest pain. Still having chest wall pain. Still having cough, congestion, shortness of breath but states it may be slightly better than before. Denies any dysuria, frequency. Denies any diarrhea, constipation. PHYSICAL: Temp 97, pulse 52, respiratory 20, BP 130/84.General: The patient is well developed, well nourished. He is in mild respiratory distress. His O2 saturation actually was able to stay stable at 95 while decreasing him down to 4 L yesterday. General: He is awake, alert. Neck: Supple. CV: Regular rate. Chest: Relatively clear with slightly improved breath sounds. Wheezing is faint today. Abdomen: Soft, nondistended. Extremities: Moves all extremities. Skin: Still having discoloration of ecchymotic lesion on the right side of his abdomen and chest wall pain. No real change. LABS: WBC is 14. Total bilirubin 1.1, AST 55, ALT 69. Albumin 3.2. ASSESSMENT: 1. Right lower lobe pneumonia. Continue antibiotics. 2. Emphysema secondary to alpha 1 antitrypsin. 3. Hypoxic respiratory failure. Slightly improved with decreased O2 requirement down to 4 L. 4. Right-sided chest wall ecchymosis. 5. Acute on chronic pain. PLAN: We will continue to discuss with patient's specialist at [facility]. They currently do not have a bed. Discussed with Mr. Rivera that although that is our plan to attempt to transfer him, certainly this becomes problematic given the shear distance. We will increase his OxyContin to 30 twice a day as he is still requiring Dilaudid frequently. We will continue to follow his elevated LFTs as well as his leukocytosis.
[2016-04-02] MEDS: MUCOMYST 20% INH SCH (11:58)
[2016-04-02 15:15] VITALS: BP 129/79
[2016-04-02] MEDS ORDERED: OXYCONTIN PO SCH (21:00)
--- NOTE | 2016-04-03 06:52 | PROGRESS NOTE ---
DATE: 04/02/2016 ATTENDING PHYSICIAN: Dr. Hays. SUBJECTIVE: Follow-up visit for pulmonary. Patient seen and examined. Shortness of breath is close to baseline, still has some cough and congestion. Pain has improved to a certain extent. Able to ambulate and tolerate pain. OBJECTIVE: Vital Signs: Blood pressure 97. Pulse 52. Respiratory rate 20. BP is 130/84. General: Not in significant distress. Heart: S1, S2 heard. Oxygen saturation is 95% on 4 L. Lungs: Slightly decreased air entry. Minimal wheezing. No rhonchi noted. Skin: He still has ecchymotic lesion but improved since yesterday. LABORATORY DATA: CBC within normal limits except for white count of 13,000. ASSESSMENT AND PLAN: 1. Right lower lobe pneumonia. 2. Emphysema secondary alpha one antitrypsin deficiency. 3. Sinusitis. 4. Right chest wall abdominal wall ecchymosis. 5. Hypoxic respiratory failure. PLAN: Patient is clinically improved to a great extent, close to baseline. Patient will be continued on DuoNeb nebulization treatments and oral pain medicines. Continue his home regimen of inhalers. Continue oxygen to keep sats > 88%. Pt to follow up with Lung Transplant after discharge. Okay to d/c home from pulmonary standpoint. [facility]
== END 2016-04-02 19:15 | disposition home health service (06) | DRG 189 ==
LOC: P.ED 16:31 → P.ICU 22:01 → P.MEDSURG 03-29 17:01
PROVIDERS: ATTEND Family Medicine
DX: J96.01 Acute respiratory failure with hypoxia (principal); J18.9 Pneumonia, unspecified organism; N17.9 Acute kidney failure, unspecified; J44.0 Chronic obstructive pulmonary disease with (acute) lower respiratory infection; J44.1 Chronic obstructive pulmonary disease with (acute) exacerbation; J94.2 Hemothorax; F10.239 Alcohol dependence with withdrawal, unspecified; Z68.41 Body mass index [BMI] 40.0-44.9, adult; Z99.81 Dependence on supplemental oxygen; E88.01 Alpha-1-antitrypsin deficiency; E66.01 Morbid (severe) obesity due to excess calories; K74.60 Unspecified cirrhosis of liver; J98.4 Other disorders of lung; R23.3 Spontaneous ecchymoses; J32.9 Chronic sinusitis, unspecified; G89.4 Chronic pain syndrome; Z79.899 Other long term (current) drug therapy; Z79.52 Long term (current) use of systemic steroids; Z85.820 Personal history of malignant melanoma of skin; Z81.2 Family history of tobacco abuse and dependence
CPT/HCPCS: 36415; 71010; 71020; 71250; 74150; 74176; 80048; 80053; 81001; 82550; 82553; 82805; 83605; 83735; 83880; 84100; 84484; 85014; 85018; 85025; 85027; 85379; 85610; 85730; 87040; 87804; 93005; 93306; 94640; 94668; 94761; 94799; 96365; 96366; 96375; 96376; C9113; J0692; J0713; J1170; J1940; J2270; J2405; J2920; J2930; J7030; J7512; S0164